=== PATIENT | male | born 1965 | race Caucasian/White ===

== ENCOUNTER 2017-05-09 17:02 | Emergency (ER) | payer OTHER ==
[~2017-05-09] VITALS: Ht 160 cm; Wt 90.7 kg
[2017-05-09] MEDS ORDERED: MORPHINE SULFATE 4 MG/ML SYR/VIAL ONE (19:50)
[2017-05-09] MEDS ORDERED: ONDANSETRON HCL 4 MG/2 ML VIAL ONE (19:51)
[2017-05-09] MEDS ORDERED: SODIUM CHLORIDE 0.9% 1,000 ML IV ONE (19:52)
[2017-05-09] MEDS ORDERED: IOHEXOL 350 MG/ML 100ML IJ ONE (19:56)
[2017-05-09] MEDS ORDERED: MORPHINE SULFATE 4 MG/ML SYR/VIAL IV ONE ×2 (20:00→21:00)
[2017-05-09] MEDS ORDERED: ONDANSETRON HCL 4 MG/2 ML VIAL IV ONE (20:00)
[2017-05-09 20:14] LABS: Basophils # (auto) 0 uL; Basophils % (auto) 0.4 % (0.0-2.0); Eosinophils # (auto) 0.1 uL; Eosinophils % (auto) 0.9 % (0.0-7.0); Hemoglobin 17.4 g/dL (13.5-17.5); Lymphocytes # (auto) 1.4 uL; Lymphocytes % (auto) 10.8 % (10.0-50.0); Mean Corpuscular Hemoglobin 30.4 pg (28.0-32.0); Mean Corpuscular Hgb Conc. 34.1 g/dL (32.0-36.0); Mean Corpuscular Volume 89.2 fL (80.0-100.0); Monocytes # (auto) 0.8 uL; Monocytes % (auto) 5.6 % (0.0-12.0); Neutrophils % (auto) 82.3 % (37.0-80.0); Platelet Count (auto) 257 10^3/uL (140-450); Red Blood Cells 5.72 10^6/uL (4.5-5.90); White Blood Cell 13.4 10^3/uL (4.4-10.8)
[2017-05-09] MEDS ORDERED: NICARDIPINE 25MG/250ML BAG KIT 250 ML IV SCH (20:30)
[2017-05-09 20:32] LABS: Alanine Aminotransferase 30 U/L (16-61); Albumin 4.4 g/dL (3.4-5.0); Alkaline Phosphatase 108 U/L (45-117); Anion Gap 8 (5-15); Aspartate Aminotransferase 17 U/L (15-37); BUN/Creatinine Ratio 15.4; Bilirubin, Total 0.5 mg/dL (0.2-1.0); Blood Urea Nitrogen 19 mg/dL (7-18); Calcium 9.3 mg/dL (8.5-10.1); Carbon Dioxide 27 mmol/L (21-32); Chloride 102 mmol/L (98-107); GFR African American 80 mL/min; GFR Non-African American 66 mL/min; Glucose 114 mg/dL (74-106); INR 0.95 (0.9-1.15); Magnesium 2.6 mg/dL (1.6-2.6); Partial Thromboplastin Time 27.5 sec (22.64-33.71); Potassium 4.7 mmol/L (3.5-5.1); Prothrombin Time 10.4 sec (9.37-12.3); Sodium 137 mmol/L (136-145); Total Protein 8.6 g/dL (6.4-8.2)
[2017-05-09] MEDS ORDERED: NICARDIPINE 25MG/250ML BAG KIT 250 ML IV ONE (20:35)
[2017-05-09] MEDS ORDERED: LABETALOL INJECTION 250 MG in SODIUM CHL 0.9% 200 ML IV ONE (21:45)
[2017-05-09 22:13] VITALS: BP 178/92
== END 2017-05-09 22:15 | disposition short-term general hospital (02) ==
LOC: ER 17:02
DX: I72.8 Aneurysm of other specified arteries (principal); I10 Essential (primary) hypertension; F17.210 Nicotine dependence, cigarettes, uncomplicated
CPT/HCPCS: 36415; 71045; 71275; 80053; 83735; 83880; 84484; 85025; 85379; 85610; 85730; 93005; 96361; 96365; 96375; 96376; 99291; J2270; J2405; J7050; Q9967

== ENCOUNTER 2017-06-10 18:00 | Emergency (ER) | payer OTHER ==
[~2017-06-10] VITALS: Ht 190.5 cm; Wt 90.7 kg
[2017-06-10 19:54] LABS: Basophils # (auto) 0 uL; Basophils % (auto) 0.5 % (0.0-2.0); Eosinophils # (auto) 0.4 uL; Eosinophils % (auto) 4.1 % (0.0-7.0); Hematocrit 42.7 % (41.0-53.0); Hemoglobin 14.4 g/dL (13.5-17.5); Lymphocytes # (auto) 2.9 uL; Lymphocytes % (auto) 30.7 % (10.0-50.0); Mean Corpuscular Hemoglobin 29.1 pg (28.0-32.0); Mean Corpuscular Hgb Conc. 33.7 g/dL (32.0-36.0); Mean Corpuscular Volume 86.3 fL (80.0-100.0); Monocytes # (auto) 0.8 uL; Monocytes % (auto) 8.9 % (0.0-12.0); Neutrophils # (auto) 5.3 uL; Neutrophils % (auto) 55.8 % (37.0-80.0); Nucleated Red Blood Cells % 0.3 %; Platelet Count (auto) 244 10^3/uL (140-450); Red Blood Cells 4.94 10^6/uL (4.5-5.90); Red Cell Distribution Width 13.1 % (11.8-14.3); White Blood Cell 9.4 10^3/uL (4.4-10.8)
[2017-06-10] MEDS ORDERED: SODIUM CHLORIDE 0.9% 1,000 ML IV ONE (20:00)
[2017-06-10 20:13] LABS: Albumin 3.6 g/dL (3.4-5.0); Anion Gap 5 (5-15); BUN/Creatinine Ratio 21.3; Blood Urea Nitrogen 20 mg/dL (7-18); Calcium 8.7 mg/dL (8.5-10.1); Carbon Dioxide 31 mmol/L (21-32); Chloride 103 mmol/L (98-107); GFR African American 109 mL/min; GFR Non-African American 90 mL/min; Glucose 76 mg/dL (74-106); Lipase 119 U/L (73-393); Potassium 4.2 mmol/L (3.5-5.1); Sodium 139 mmol/L (136-145)
[2017-06-10 20:18] LABS: Alanine Aminotransferase 18 U/L (16-61); Alkaline Phosphatase 135 U/L (45-117); Aspartate Aminotransferase 12 U/L (15-37); Bilirubin, Total 0.3 mg/dL (0.2-1.0); Total Protein 7.8 g/dL (6.4-8.2)
[2017-06-10] MEDS ORDERED: AMLO5TAB2 PO (20:41)
[2017-06-10] MEDS ORDERED: METO25TA62 PO ×2 (20:41)
[2017-06-10] MEDS ORDERED: BENA10TA9 PO (20:41)
[2017-06-10 20:53] LABS: Urine Bacteria NONE SEEN /hpf (None Seen); Urine Blood Negative /uL (Negative); Urine Specific Gravity 1.019 (1.001-1.035); Urine WBC 2 /hpf (0 - 3)
[2017-06-10] MEDS ORDERED: POLYETHYLENE GLYCOL 17 GM PWDR PO ONE (21:15)
[2017-06-10 21:20] VITALS: BP 111/70
== END 2017-06-10 21:30 | disposition home or self-care (01) ==
LOC: ER 18:00 → EDBD 18:00 → EDUNIT# 18:00 → ER 21:30
DX: R10.9 Unspecified abdominal pain (principal); K57.30 Diverticulosis of large intestine without perforation or abscess without bleeding; K59.00 Constipation, unspecified; K42.9 Umbilical hernia without obstruction or gangrene; Z98.890 Other specified postprocedural states
CPT/HCPCS: 36415; 71045; 74176; 80053; 81001; 83690; 84484; 85025; 93005; 96360; 99285; J7030

== ENCOUNTER 2018-07-28 04:26 | Emergency (ER) | payer OTHER ==
[~2018-07-28] VITALS: Ht 188 cm; Wt 95.3 kg
[~2018-07-28 04:26] MED LIST: AMLO5TAB13 PO; BENA10TA9 PO; METO25TA62 PO
[2018-07-28 05:52] LABS: Basophils # (auto) 0.1 uL; Eosinophils # (auto) 0.2 uL; Eosinophils % (auto) 2.5 % (0.0-7.0); Hematocrit 43.4 % (41.0-53.0); Hemoglobin 15.3 g/dL (13.5-17.5); Lymphocytes % (auto) 33.1 % (10.0-50.0); Mean Corpuscular Hemoglobin 30.7 pg (28.0-32.0); Mean Corpuscular Hgb Conc. 35.3 g/dL (32.0-36.0); Mean Corpuscular Volume 86.8 fL (80.0-100.0); Monocytes # (auto) 0.7 uL; Monocytes % (auto) 10.9 % (0.0-12.0); Neutrophils # (auto) 3.2 uL; Neutrophils % (auto) 52.5 % (37.0-80.0); Nucleated Red Blood Cells % 0.1 %; Platelet Count (auto) 194 10^3/uL (140-450); Red Cell Distribution Width 13.8 % (11.8-14.3)
[2018-07-28 06:10] LABS: Albumin 3.9 g/dL (3.4-5.0); Anion Gap 9 (5-15); Blood Urea Nitrogen 14 mg/dL (7-18); Calcium 8.4 mg/dL (8.5-10.1); Carbon Dioxide 27 mmol/L (21-32); Chloride 107 mmol/L (98-107); Glucose 94 mg/dL (74-106); Magnesium 2.3 mg/dL (1.6-2.6); Potassium 3.7 mmol/L (3.5-5.1); Sodium 143 mmol/L (136-145)
[2018-07-28 06:17] LABS: Alanine Aminotransferase 27 U/L (16-61); Alkaline Phosphatase 62 U/L (45-117); Aspartate Aminotransferase 21 U/L (15-37); BUN/Creatinine Ratio 13.1; Bilirubin, Total 0.7 mg/dL (0.2-1.0); GFR African American 93 mL/min; GFR Non-African American 77 mL/min; Total Protein 7.1 g/dL (6.4-8.2)
[2018-07-28] MEDS ORDERED: ONDANSETRON HCL 4 MG/2 ML VIAL IV ONE (08:00)
[2018-07-28] MEDS ORDERED: MORPHINE SULFATE 4 MG/ML SYR/VIAL IV ONE (08:00)
[2018-07-28] MEDS ORDERED: amLODIPine BESYLATE 5 MG TAB PO ONE (08:15)
[2018-07-28] MEDS ORDERED: METOPROLOL SUCCINATE XL 50 MG TAB PO ONE (08:15)
[2018-07-28 08:21] LABS: Urine Bacteria NONE SEEN /hpf (None Seen); Urine Blood Negative /uL (Negative); Urine Mucus FEW (None Seen); Urine Specific Gravity 1.031 (1.001-1.035); Urine Sperm PRESENT /hpf (None Seen); Urine WBC 4 /hpf (0 - 3)
[2018-07-28] MEDS ORDERED: ASPirin 81 mg TAB PO ONE (08:45)
[2018-07-28] MEDS ORDERED: NITROGLYCERIN 0.4 MG SL TAB SL ONE (08:45)
[2018-07-28 09:21] VITALS: BP 139/86
== END 2018-07-28 10:08 | disposition short-term general hospital (02) ==
LOC: EDBD 04:26 → ER 04:26
DX: R07.89 Other chest pain (principal); I24.9 Acute ischemic heart disease, unspecified; I10 Essential (primary) hypertension; Z90.89 Acquired absence of other organs
CPT/HCPCS: 36415; 71045; 71250; 74176; 80053; 81001; 83735; 84484; 85025; 93005; 94761; 96374; 96375; 99285; J2270; J2405

== ENCOUNTER 2020-01-07 21:19 | Emergency (ER) | payer MEDICAID ==
[~2020-01-07] VITALS: Ht 190.5 cm; Wt 95.3 kg
[~2020-01-07 21:19] MED LIST changes: +AMLO-489 PO; -AMLO5TAB13 PO; -METO25TA62 PO; +METO25TA93 PO
[2020-01-08] MEDS ORDERED: cefTRIAXone SOD 1,000 MG VL IM ONE (01:45)
[2020-01-08 02:30] VITALS: BP 134/88
== END 2020-01-08 02:32 | disposition home or self-care (01) ==
LOC: ER 21:33
DX: S83.8X1A Sprain of other specified parts of right knee, initial encounter (principal); L03.115 Cellulitis of right lower limb; W01.0XXA Fall on same level from slipping, tripping and stumbling without subsequent striking against object, initial encounter; Y93.89 Activity, other specified; Y92.89 Other specified places as the place of occurrence of the external cause; Y99.8 Other external cause status
CPT/HCPCS: 73700; 96372; 99284; J0696

== ENCOUNTER 2021-06-11 22:20 | Emergency (ER) | payer MEDICAID ==
[~2021-06-11] VITALS: Ht 190.5 cm; Wt 93.0 kg
[~2021-06-11 22:20] MED LIST changes: +BENA10TA15 PO; -BENA10TA9 PO
[2021-06-11 22:29] VITALS: BP 146/89
== END 2021-06-12 03:15 | disposition left against medical advice (07) ==
LOC: ER 22:20
DX: S89.91XA Unspecified injury of right lower leg, initial encounter (principal); Z53.21 Procedure and treatment not carried out due to patient leaving prior to being seen by health care provider; W18.39XA Other fall on same level, initial encounter; Y93.89 Activity, other specified; Y92.89 Other specified places as the place of occurrence of the external cause; Y99.8 Other external cause status
CPT/HCPCS: 73590